=== PATIENT | female | born 1940 | race Caucasian/White ===

== ENCOUNTER → 2016-03-27 | Outpatient (CLI) | payer OTHER ==
[~2016-03-27] VITALS: Ht 167.6 cm; Wt 63.0 kg
[~2016-03-27] MED LIST: ACCUPRIL10 MG; ASPIRIN325; AZO URINARY P97.5 MG PO; CALCIUM 600 +1 EAC1; D3 DOTS2000 UNIT PO; DIPHENHYDRAMINE25 M1 PO; FIBER500 MG; HARD NAILS2500 MCG PO; IBUPROFEN 200200 M1 PO; LEVOTHYROXINE 0.1 MG; MAGNESIUM OXID400 MG PO; MAXZIDE-25 MG1 EACH; MOBIC7.5 MG PO; MSM-GLUCOSAMIN1 EACH; NEURONTIN 300300 M1 PO; SENIOR TABS1 EACH; [UNRECOGNIZED DRUG - OTHER]
--- NOTE | ~2016-03-27 | HPC ---
[facility] [address] [place] [address] PAIN MANAGEMENT CONSULTATION Name: GRACIELA JIMÉNEZ Room #: REG [facility].#: [id number] Admission: 03/27/16 Attend Phys: Oscar Montemayor DO Discharge: Date of : 40 Report #: [id number] THIS REPORT FOR: //name// CC: Oscar Javier MD DATE OF SERVICE: 03/27/2016 REFERRING PHYSICIAN: Maliha Javier MD CHIEF COMPLAINT: Left buttock and posterolateral thigh pain radiating all the way to the foot. HISTORY OF PRESENT ILLNESS: As you know, the patient is a 76-year-old female returning in followup visit with progressively worsening pain now involving left buttock, posterolateral thigh radiating all the way to the foot. We have been treating the patient for the gluteus minimus muscle injury that she sustained on the left side, but symptoms appear to have now be more radicular in origin. She returns today stating her buttock area has been relatively stable, but now is experiencing pain radiating all the way down to the ankle. She has requested treatment for suspected lumbar radiculopathy. She denies injury or trauma that may have led to progression of pain. ALLERGIES: SULFA. CURRENT MEDICATIONS: Diphenhydramine, FiberCon, cholecalciferol, magnesium oxide, glucosamine, multivitamin, calcium, quinapril, triamterene/hydrochlorothiazide, and levothyroxine. SOCIAL HISTORY: The patient denies tobacco, IV illicit drug use. Admits to one alcoholic beverage per day. She is unaccompanied today. PHYSICAL EXAMINATION: VITAL SIGNS: Blood pressure 148/80, pulse is 63, respiratory rate 16, unlabored. The patient 98% on room air. Height 5 feet 6 inch tall, weight 138.8 pounds, BMI calculated 22.4. GENERAL: Well-developed, well-nourished, well-hydrated 76-year-old female appearing stated age, placing current pain score at around 1-2/10. HEENT: Normocephalic, atraumatic. Pupils equal, round, reactive to light. EXTREMITIES: Show no clubbing, no cyanosis, no edema. MUSCULOSKELETAL: Seated straight leg raising negative. Supine straight leg raising mildly positive left. Luis Antonio's test is positive for buttock and posterolateral thigh pain, correlating to the gluteus minimus injury. Ankle clonus is negative. Babinski is negative, intact to light touch from L1 through [place] [address] PAIN MANAGEMENT CONSULTATION Name: GRACIELA JIMÉNEZ Room #: REG [facility] Andres#: [id number] Admission: 03/27/16 Attend Phys: Oscar Montemayor DO Discharge: Date of : 40 Report #: [id number] ASSESSMENT: 1. Atypical lumbar radiculopathy. 2. Lumbosacral spondylosis with radicular symptoms. 3. Left buttock pain. 4. Gluteus minimus rupture. 5. Chronic intractable pain. PLAN: 1. The patient has returned today in followup visit with what appears to be lumbar radicular symptoms radiating from the left buttock area all the way to the ankle. We discussed with the patient the treatment option for lumbar radiculopathy. These would include physical therapy, stretching exercises, core strengthening for which the patient is actively participating. We discussed medication management with addition of a neuropathic pain medication and alteration in her nonsteroidal anti-inflammatory. We discussed lumbar epidural injections under fluoroscopic guidance and surgical options. After reviewing risks and benefits of all proposed treatment options, the patient chose the epidural injection. The patient was advised risks and benefits of a lumbar epidural injection. These risks include but not necessarily limited to bleeding, bruising, infection, worsening pain, no relief of pain, also risk of temporary or permanent muscle weakness, temporary or permanent nerve damage, possible paralysis and . The patient states understood and wished to proceed. 2. No medication changes were made at today's visit. The patient continues current medical therapy as previously prescribed. 3. The patient to return to our clinic on an as needed basis for possible repeat epidural injection. PROCEDURE NOTE DESCRIPTION OF PROCEDURE: Lumbar epidural steroid injection under fluoroscopic guidance. This is the first procedure of the first series that the patient is undergoing. After obtaining written consent, the patient was taken back to the fluoroscopy suite, placed in a prone position with pillow under the abdomen to decrease lumbar lordosis. The skin overlying the lumbosacral area was then prepped and draped in aseptic fashion. The lumbar vertebral interspace was then identified by AP fluoroscopy. The skin and subcutaneous tissue overlying the target site of injection was anesthetized with 3 mL 1% lidocaine. A 20-gauge 3-1/2 inch Tuohy needle was then advanced under fluoroscopic guidance towards the epidural space using a left paramedian approach. The epidural space [address] [address] PAIN MANAGEMENT CONSULTATION Name: GRACIELA JIMÉNEZ Room #: REG [facility]#: [id number] Admission: 03/27/16 Attend Phys: Oscar Montemayor DO Discharge: Date of : 40 Report #: [id number] was identified using loss of resistance to air technique. After negative aspiration for heme or cerebrospinal fluid, a total of 1 mL of Omnipaque was injected. A lumbar epidurogram was confirmed using both AP and lateral fluoroscopy. After negative aspiration for heme or cerebrospinal fluid, 5 mL of a solution containing 2 mL 40 mg per mL, 80 mg total triamcinolone and 3 mL lidocaine 1% was injected in increments. Contrast spread was noted post epidural space. The needle was then retracted approximately half way and needle tract flushed with 1 mL of 1% lidocaine. Needle was then removed. There were no apparent sensory or motor deficits in the lower extremity following the procedure. A sterile bandage was placed over the injection site. The heart rate, pulse, oximetry and blood pressure were continuously monitored after the procedure. There were no apparent complications. The patient tolerated the procedure well and was carefully escorted to the recovery room in stable condition. There were no apparent complications. After meeting discharge criteria, the patient was then discharged home. <ELECTRONICALLY SIGNED> By: Oscar Montemayor DO 04/09/16 0805 0811 [id number] Oscar Montemayor DO /nt
[2016-03-27 10:59] VITALS: BP 148/80
== END | disposition home or self-care (01) ==
LOC: PAIN 07:14
DX: M47.27 Other spondylosis with radiculopathy, lumbosacral region (principal); M25.552 Pain in left hip; S76.312A Strain of muscle, fascia and tendon of the posterior muscle group at thigh level, left thigh, initial encounter; G89.29 Other chronic pain

== ENCOUNTER → 2016-09-11 | Outpatient (CLI) | payer OTHER ==
[~2016-09-11] VITALS: Ht 167.6 cm; Wt 59.9 kg
[2016-09-11 09:32] VITALS: BP 132/78
== END | disposition home or self-care (01) ==
LOC: PAIN 07:04
DX: M47.26 Other spondylosis with radiculopathy, lumbar region (principal); M25.552 Pain in left hip; S76.002D Unspecified injury of muscle, fascia and tendon of left hip, subsequent encounter; Z88.2 Allergy status to sulfonamides; X58.XXXD Exposure to other specified factors, subsequent encounter

== ENCOUNTER → 2016-10-16 | Outpatient (CLI) | payer OTHER ==
[~2016-10-16] VITALS: Ht 167.6 cm; Wt 61.1 kg
--- NOTE | ~2016-10-16 | HPC ---
[facility] [address] [address] PAIN MANAGEMENT CONSULTATION Name: GRACIELA JIMÉNEZ [id number] Admission: 10/16/16 Attend Phys: Oscar Montemayor DO Discharge: Date of : 40 Report #: [id number] THIS REPORT FOR: //name// CC: Oscar Javier DATE OF SERVICE: 10/16/2016 DATE OF SERVICE: 10/16/2016 CHIEF COMPLAINT: Left posterolateral thigh pain. HISTORY OF PRESENT ILLNESS: As you know, the patient is a 76-year-old female, who has chronic complaints of left lower extremity and buttock pain. She has had complete resolution of her left buttock and hip pain. She is now experiencing pain that radiates along what appears to be the iliotibial band. Pain begins in the upper posterolateral hip directly over the greater trochanter and radiates to the lateral aspect just below the tibial plateau on the left. This falls at the course of the iliotibial band. She does report intermittent lower extremity pain radiating all the way down, but this has not been present in years. She does have gluteus medius avulsion. Imaging that shows problems that relating to her buttock pain, this has resolved. She has been undergoing physical therapy and was referred back to our clinic for "a shot." The patient is unsure why she was referred back for shot. In order, she understands what shot that she was proposed to have. She returns to discuss options. ALLERGIES: SULFA. CURRENT MEDICATIONS: Diphenhydramine, FiberCon, cholecalciferol, magnesium oxide, glucosamine chondroitin, calcium carbonate, quinapril, triamterene/hydrochlorothiazide, and levothyroxine. SOCIAL HISTORY: The patient denies tobacco, alcohol, IV or illicit drug use. 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 IMAGING: No new imaging available. PHYSICAL EXAMINATION: VITAL SIGNS: Blood pressure 171/95, pulse 63, respiratory rate 16, unlabored. The patient is 100% on room air, height 5 feet 6 inches tall, weight 134.6 pounds, BMI calculated 21.7. GENERAL: Well developed, well nourished, well hydrated, thin, 76-year-old female appearing her stated age. She is in no acute distress. She is placing pain score at no greater than 2-3/10. HEENT: Normocephalic, atraumatic. Pupils equal, round, reactive to light. [place] [address] PAIN MANAGEMENT CONSULTATION Name: GRACIELA JIMÉNEZ Room #: REG [facility].#: [id number] Admission: 10/16/16 Attend Phys: Oscar Montemayor DO Discharge: Date of : 40 Report #: [id number] EXTREMITIES: Show no clubbing, no cyanosis, no edema. MUSCULOSKELETAL: Lower extremity strength appears equal and symmetrical 5/5. Pain is generated with external rotation of the left lower extremity. Pain is also elicited with attempting [id number] with a left leg positioned over the right knee. Seated straight leg raising negative. Supine straight leg raising negative. Erinn's test negative. Modified Gaenslen's positive for axial low back pain. Ankle clonus negative. ASSESSMENT: 1. Chronic lumbar radiculopathy. 2. Lumbosacral spondylosis with radicular symptoms. 3. Lumbar degeneration. 4. Left buttock pain. 5. Iliotibial band pain. 6. Chronic intractable pain. PLAN: 1. The patient returns today in followup visit indicating she was referred back to our clinic for "a shot." The patient and I discussed at length today the findings and physical exam would indicate she has a tight iliotibial band on the left side. The provocating factors tend to be involving the iliotibial band distribution does not appear to be radicular in origin. Injections into the gluteus area overlying her avulsion would not be providing any long-term efficacy and could potentially exacerbate the avulsion on findings. The patient has undergone left piriformis injection without improvement. She has also undergone a trochanteric bursa injection with minimal improvement. At this point, I cannot determine what type of injections was requested nor an injection that would provide any long-term benefit. At this point, I would recommend the patient remain conservative and continue her physical therapy, daily stretching activities and exercise program. If a true radiculopathy is noted, would be more than happy to see the patient back in followup visit for this injection. 2. The patient will contact the rereferring physician to determine what shot they had intended the patient to undergo. We would be more than happy to discuss this with the rereferring physician. At this point, I do not see interventional treatments being beneficial treating minimal pain. Would recommend that we delay any injections until which time the pain is intolerable. If the pain that is occurring is making the patient to such a debilitative level, she cannot participate in physical activity, then we need to further evaluate for other concerns. 3. We made no changes in the patient's medical history. We will be available to see the patient back in followup visit. We have requested that the patient discuss her case further with the rereferring physicians, so that we can [address] [place] [address] PAIN MANAGEMENT CONSULTATION Name: JESSYGRACIELA LESTER Room #: REG [facility]#: [id number] Admission: 10/16/16 Attend Phys: Oscar Montemayor DO Discharge: Date of : 40 Report #: [id number] determine if an injection would be beneficial and if so what injection they thought might be helpful. <ELECTRONICALLY SIGNED> By: Oscar Montemayor DO 10/22/16 0805 0818 1044 Oscar Montemayor DO /nt
[2016-10-16 10:47] VITALS: BP 171/95
== END ==
LOC: PAIN 07:15
DX: M47.27 Other spondylosis with radiculopathy, lumbosacral region (principal); G89.29 Other chronic pain; Z88.8 Allergy status to other drugs, medicaments and biological substances; Z79.899 Other long term (current) drug therapy

== ENCOUNTER → 2017-04-02 | Outpatient (CLI) | payer OTHER ==
[~2017-04-02] VITALS: Ht 167.6 cm; Wt 64.0 kg
[~2017-04-02] MED LIST changes: +B-COMPLEX-VITA1 EACH PO; +VITAMIN B-625 MG PO; +VITAMIN K240 MCG PO; +VITAMINC500 PO
--- NOTE | ~2017-04-02 | HPC ---
[facility] [address] [address] PAIN MANAGEMENT CONSULTATION Name: GRACIELA JIMÉNEZ Room #: REG [facility].#: [id number] Admission: 04/02/17 Attend Phys: Oscar Montemayor DO Discharge: Date of : 40 Report #: [id number] THIS REPORT FOR: //name// CC: REMY Javier DATE OF SERVICE: 04/02/2017 REFERRING PHYSICIAN: Remy Javier M.D. CHIEF COMPLAINT: Low back pain, left lower extremity pain. HISTORY OF PRESENT ILLNESS: As you know, the patient is a 77-year-old female who has chronic complaints of low back pain, left lower extremity pain with paresthesias. She has had a good resolution of her left buttock and hip pain with treatments in the past, but has had recurrence of symptoms, no inciting injury or trauma. She returns today in followup visit reporting a pain to 2-6/10. States the pain is sharp, dull, aching in sensation, exacerbated with rising from a chair and going down stairs, improves with sitting, medications. She returns today in followup visit for medication treatment options. At present, she does not need interventional therapies. ALLERGIES: SULFA. CURRENT MEDICATIONS: Meloxicam, diphenhydramine, fiber supplement, cholecalciferol, magnesium oxide, multivitamin, calcium carbonate, quinapril, triamterene/hydrochlorothiazide, levothyroxine. SOCIAL HISTORY: The patient denies tobacco, IV or illicit drug use. Uses alcohol on daily basis. 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 IMAGING: No new imaging available. PQRS: The patient does have a history of osteoporosis, no osteoarthritis, no rheumatoid arthritis. She is not a fall risk. She has not had any falls in the past 3 months. She is not on blood thinners. She does not have a diagnosis of hypertension and not being treated for such. She is not on opioid contract. Her risk assessment tool for opioid abuse is low. Functional assessment tool shows mild interference of daily activities secondary to pain. PHYSICAL EXAMINATION: VITAL SIGNS: Blood pressure 130/54, pulse is 68, respiratory rate 14, unlabored. The patient is 98% on room air. Height 5 feet 6 inches tall, weight 141 pounds, BMI calculated 22.8. GENERAL: Well-developed, well-nourished, well-hydrated 77[place] [address] PAIN MANAGEMENT CONSULTATION Name: GRACIELA JIMÉNEZ Room #: REG [facility]#: [id number] Admission: 04/02/17 Attend Phys: Oscar Montemayor DO Discharge: Date of : 40 Report #: [id number] appearing stated age, placing pain score anywhere from 1-6/10 depending on activity. HEENT: Normocephalic, atraumatic. Pupils equal, round, reactive to light. EXTREMITIES: Show no clubbing, no cyanosis, no edema. MUSCULOSKELETAL: Seated straight leg raising negative. Supine straight leg raising mildly positive on the left. Luis Antonio test negative. ASSESSMENT: 1. Lumbar radiculopathy. 2. Lumbosacral spondylosis with radiculopathy. 3. Lumbar degeneration. 4. Left buttock pain. 5. Chronic intractable pain. PLAN: 1. The patient returns today in followup visit for medication management. At present, she does not need interventional treatments, but has discussed a possible repeat epidural injection in the very near future to address her ongoing pain if it does not improve with medication management. She has a trip that she has planned that she may wish to undergo the epidural prior to this trip. She has noted good efficacy with previous epidural injections and we will delay the next epidural injection until just prior to this trip if she needs to undergo the procedure itself. As far as medication management, she needs refills of her Meloxicam today. 2. The patient was provided prescription of Meloxicam 7.5 mg 1 tab p.o. b.i.d., #60, two refills. Advised the patient to watch for dyspepsia, worsening blood pressure, lower extremity edema with use of therapy. No side effects, she can continue the medication as directed. 3. We will see the patient back in followup visit on an as-needed basis for possible epidural injection and for medication refills. <ELECTRONICALLY SIGNED> By: Oscar Montemayor DO 04/10/17 1130 0756 0826 Oscar Montemayor DO /nt
[2017-04-02 12:45] VITALS: BP 130/54
== END ==
LOC: PAIN 07:13
DX: M47.27 Other spondylosis with radiculopathy, lumbosacral region (principal); G89.29 Other chronic pain; M79.652 Pain in left thigh

== ENCOUNTER → 2017-05-28 | Outpatient (CLI) | payer OTHER | LOC: RAD 14:38 | DX: Z12.31 Encounter for screening mammogram for malignant neoplasm of breast (principal) ==

== ENCOUNTER → 2017-09-10 | Outpatient (CLI) | payer OTHER ==
[~2017-09-10] VITALS: Ht 167.6 cm; Wt 61.1 kg
--- NOTE | ~2017-09-10 | HPC ---
[facility] [address] [place] [address] PAIN MANAGEMENT CONSULTATION Name: GRACIELA JIMÉNEZ Room #: REG [facility].#: [id number] Admission: 09/10/17 Attend Phys: Oscar Montemayor DO Discharge: Date of : 40 Report #: [id number] THIS REPORT FOR: //name// CC: Oscar Javier MD DATE OF SERVICE: 09/10/2017 REFERRING PHYSICIAN: Maliha Javier MD CHIEF COMPLAINT: Low back pain, left lower extremity pain. HISTORY OF PRESENT ILLNESS: As you know, the patient is a 77-year-old female who returns in followup visit with continued low back pain, left lower extremity symptoms for which she places pain about 1/10. She indicates that the worst her pain is 4/10. She returns today in followup visit, indicating that the meloxicam twice-a-day has been very effective for pain control. She does experience radicular symptoms periodically, radiating all the way down the leg. She continues to believe this is due to her hip. Her symptoms by physical exam and history as well as imagings would indicate the lumbar radiculopathy. The patient returns today in followup visit, requesting refill of her meloxicam therapy. She is denying any side effects to medication including dyspepsia, worsening blood pressure, lower extremity edema. She wishes to have refills of medication provided today. The patient does indicate that she is planning a trip to [place] with one of her grandchildren, starting mid September. ALLERGIES: SULFA. CURRENT MEDICATIONS: Meloxicam, diphenhydramine, fiber supplementation, cholecalciferol, magnesium oxide, multivitamin, calcium carbonate, quinapril, triamterene/hydrochlorothiazide, and levothyroxine. SOCIAL HISTORY: The patient denies tobacco, IV or illicit drug use. She uses alcohol on a daily basis. She is an artist, working, not receiving workmen's compensation, unaccompanied today. IMAGING: No imaging available. 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 No rheumatoid arthritis. She is not a fall risk, has not had a fall in the last 3 months. She is not on blood thinners nor does she have a diagnosis requiring any blood thinners. She does have treatment for hypertension. She is not an opioid contract. Her functional assessment tool indicates mild daily interference due to pain. [facility] [address] [place] [address] PAIN MANAGEMENT CONSULTATION Name: GRACIELA JIMÉNEZ [id number] Admission: 09/10/17 Attend Phys: Oscar Montemayor DO Discharge: Date of : 40 Report #: [id number] PHYSICAL EXAMINATION: VITAL SIGNS: Blood pressure 150/75, pulse 66, respiratory rate 16 and unlabored. The patient is 98% on room air. Height 5 feet 6 inches tall, weight 134.6 pounds, BMI calculated 21.7. GENERAL: Well-developed, well-nourished, well-hydrated, thin, 77-year-old female appearing stated age, placing pain score no greater than 1/10. HEENT: Normocephalic, atraumatic. Pupils equal, round, reactive to light. EXTREMITIES: Show no clubbing, no cyanosis, no edema. MUSCULOSKELETAL: Seated straight leg raising negative. Supine straight leg raising positive on the left. Luis Antonio's test negative. Modified Gaenslen's positive for some axial low back pain. Gait mildly antalgic, favoring left lower extremity over right. ASSESSMENT: 1. Lumbar radiculopathy. 2. Lumbosacral spondylosis with radiculopathy. 3. Degeneration of lumbar spine. 4. Left lower extremity pain. 5. Chronic intractable pain. PLAN: 1. The patient returns today in followup visit with pain level no greater than 1/10 and at its worst, her pain is 4/10. She states the meloxicam is working well for pain control. She is denying any side effects with therapy. She wishes to continue this current medication management. She does have plans to leave on a vacation to [place] in the middle of this month. She is considering possibility of undergoing epidural injection. At present, she wants to try medication management. If this is ineffective, move forward with an injection to address lumbar radicular symptoms. 2. The patient was provided prescription of meloxicam 7.5 mg 1 tab p.o. b.i.d. I have given the patient #60 tablets, 5 refills, 6 months' worth of medication. 3. We will see the patient back in followup visit on an as-needed basis for possible next in the series of epidural injections. Otherwise, we will see her back for medication management in 6 months. <ELECTRONICALLY SIGNED> By: Oscar Montemayor DO 09/11/17 0853 5 0829 Oscar Montemayor DO /nt
[2017-09-10 08:40] VITALS: BP 150/75
== END ==
LOC: PAIN 07:25
DX: M47.27 Other spondylosis with radiculopathy, lumbosacral region (principal); M51.16 Intervertebral disc disorders with radiculopathy, lumbar region; M79.662 Pain in left lower leg; G89.4 Chronic pain syndrome

== ENCOUNTER → 2018-06-03 | Outpatient (CLI) | payer OTHER | LOC: RAD 11:13 | DX: Z12.31 Encounter for screening mammogram for malignant neoplasm of breast (principal) ==